=== PATIENT | female | born 1955 | race Caucasian/White ===

== ENCOUNTER → 2017-04-02 | Outpatient (CLI) | payer OTHER ==
[~2017-04-02] MED LIST: CALC1TAB87 PO; FERR325T18 PO; LEVO100T5 PO
[2017-04-02 14:42] LABS: BASOPHIL # 0.1 TH/MM3 (0-0.2); EOSINOPHIL # 0.1 TH/MM3 (0-0.4); EOSINOPHIL % 2.8 % (0.0-4.0); HEMATOCRIT 39.3 % (35.0-46.0); HEMOGLOBIN 12.8 GM/DL (11.6-15.3); LYMPH % 32.2 % (9.0-44.0); LYMPHOCYTE # 1.7 TH/MM3 (1.0-4.8); MEAN CORPUSCULAR HGB CONC 32.6 % (32.0-36.0); MEAN PLATELET VOLUME 6.9 FL (7.0-11.0); MONO % 6.5 % (0.0-8.0); MONOCYTE # 0.3 TH/MM3 (0-0.9); NEUT % 57.5 % (16.0-70.0); PLATELET COUNT 332 TH/MM3 (150-450); RED BLOOD COUNT 4.74 MIL/MM3 (4.00-5.30); RED CELL DISTRIBUTION WIDTH 16.1 % (11.6-17.2); WHITE BLOOD COUNT 5.2 TH/MM3 (4.0-11.0)
[2017-04-02 15:03] LABS: ALBUMIN 3.8 GM/DL (3.4-5.0); ALT (GPT) 34 U/L (10-53); AST (GOT) 20 U/L (15-37); BICARBONATE 29.9 MEQ/L (21.0-32.0); BLOOD UREA NITROGEN 11 MG/DL (7-18); CALCIUM 9.2 MG/DL (8.5-10.1); CHLORIDE 106 MEQ/L (98-107); CREATININE 0.83 MG/DL (0.50-1.00); GLOMERULAR FILTRATION RATE 70 ML/MIN (>89); GLUCOSE,FASTING 86 MG/DL (74-99); SODIUM (NA) 139 MEQ/L (136-145)
[2017-04-02 15:05] LABS: ALKALINE PHOSPHATASE 107 U/L (45-117); TOTAL BILIRUBIN ADULT 0.2 MG/DL (0.2-1.0); TOTAL PROTEIN 7.7 GM/DL (6.4-8.2)
[2017-04-02 15:21] LABS: PROTHROMBIN TIME - PATIENT 10.4 SEC (9.8-11.6)
--- NOTE | 2017-04-02 15:37 | RADRPT ---
EXAM DATE/TIME: 04/02/2017 15:07 [place] COMPARISON: No previous studies available for comparison. INDICATIONS : Evaluate for pneumonia, pneumothorax, or communicable disease. Pre-op dilation and curettage. MEDICAL HISTORY : None. SURGICAL HISTORY : None. ENCOUNTER: Initial ACUITY: 1 day PAIN SCORE: 0/10 LOCATION: Bilateral chest FINDINGS: PA and lateral views of the chest demonstrate the lungs to be symmetrically aerated without evidence of mass, infiltrate or effusion. The cardiomediastinal contours are unremarkable. Osseous structure s are intact. CONCLUSION: 1. No acute cardiopulmonary findings. Cb Ness MD on April 02, 2017 at 15:34 Board Certified Radiologist. This report was verified electronically.
--- NOTE | 2017-04-04 23:53 | EKG ---
Date Performed: 04/02/2017 Time Performed: 14:34:22 PTAGE: 62 years EKG: Sinus rhythm Normal ECG PREVIOUS TRACING : 01/31/2010 09.56 DOCTOR: Wilbur Man Interpretating Date/Time 04/04/2017 23:51:16
== END ==
LOC: CPRE 14:15
PROVIDERS: ATTEND Obstetrics & Gynecology Gynecologic Oncology
DX: Z01.812 Encounter for preprocedural laboratory examination (principal); Z01.811 Encounter for preprocedural respiratory examination; Z01.810 Encounter for preprocedural cardiovascular examination; N95.0 Postmenopausal bleeding
CPT/HCPCS: 36415; 71046; 80053; 85025; 85610; 85730; 93005

== ENCOUNTER → 2017-04-08 | Day surgery (SDC) | payer OTHER ==
[~2017-04-08] VITALS: Ht 157.5 cm; Wt 81.3 kg
[~2017-04-08] MED LIST changes: +CHLORHEXIDINE GLUCONATE 2 % 1 PACK (2 CLOTHS) TOPICAL PRN; +DEXAMETHASONE SOD PHOS 4 MG/ML VIAL IV ONE; +DO NOT ADM ANY ANTICOAGULANT DRUGS PRN; +KETOROLAC TROMETHAMINE 30 MG/ML (IVP) VIAL IV PUSH ONE; +KETOROLAC TROMETHAMINE 30 MG/ML (IVP) VIAL IV PUSH PRN; +LACTATED RINGER'S 1000 ML IV PRN; +LIDOCAINE HCL 1% PF 5 ML SYRINGE OTHER ONE; +METOPROLOL TARTRATE 25 MG TAB PO PRN; +MIDAZOLAM HCL 2 MG/2 ML VIAL ONE; +ONDANSETRON HCL 4 MG/2 ML VIAL IV ONE; +POVIDONE IODINE 5% (ANTISEPSIS KIT) 4 APPLICATIONS EACH NARE PRN; +PROPOFOL 200 MG/20 ML AMP IV ONE; +SODIUM CHLORID 0.9% 500 ML IV PRN
[2017-04-08 16:00] VITALS: BP 157/85; PULSE 71; RESP 20; TEMP 98.3; O2SAT 96
--- NOTE | 2017-04-08 17:20 | MP ---
cc: RAFAL TAI KELLY L. MD TAWWAB, SHAKEELA MD DATE OF SURGERY 04/08/17 PREOPERATIVE DIAGNOSIS 1. Postmenopausal bleeding. 2. Recent nondiagnostic hysteroscopy POSTOPERATIVE DIAGNOSIS 1. Postmenopausal bleeding. 2. Recent nondiagnostic hysteroscopy 3. Polypoid tissue within the endometrium, submucosal nodules suggestive of leiomyomas. 4. 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 PROCEDURE Examination under anesthesia, fractional dilation and curettage, biopsy of the cervix at 12 o'clock SURGEON Aron Padilla MD [employer] [place] nurse first aid ANESTHESIA Laryngeal mask anesthesia ESTIMATED BLOOD LOSS 30 mL HISTORY A 62-year-old female postmenopausal bleeding, intermittent in nature underwent a recent hysteroscopy D&C that revealed benign endocervical tissue, but there was not enough endometrial tissue to provide diagnosis. She was seen in our office for second opinion consultation where we discussed options and agreed on exam under anesthesia with attempts of dilation and curettage, possible additional biopsies. She is seen again in the preop holding area where she is accompanied by her son (Cb) where the findings are again reviewed, the recommendations are made. Questions were answered. The plan for the procedure were reviewed. She expressed good understanding and agreed to move forward. FINDINGS On exam under anesthesia, there is no appreciably enlarged inguinal lymph nodes. External genitalia without mass or lesion. The vaginal mucosa is visible and palpably normal. The surface of the cervix grossly appears normal, but there is a cleft at the 12 o'clock position that is vertical where the cervix indents from the ectocervix extending to the transformation zone (possible prior obstetrics injury?) with a little bit of prominence to the tissue on each side of the cleft but without overt neoplastic change. The endometrial cavity sounds to 10 cm. The endocervix curettings reveal a scant amount of tissue. The endometrial curettings revealed some fragments of polypoid tissue, moderate amount there also and the curetting was continued until all surfaces felt gritty. There are nodular in the posterior mid uterus and in the left the anterior uterus near the fundus that had nodules within the wall of the uterus and curetting over them had the sensation of probable leiomyomas. PROCEDURE IN DETAIL She was taken to the operating room placed in dorsal lithotomy position after laryngeal mask anesthesia was administered. Time-out was undertaken. She was identified by sight recognition and hospital ID bracelet and the proposed procedure was reviewed and confirmed. She was placed in lithotomy position positioned carefully, padded appropriately. Exam under anesthesia was performed with findings as described above. She was prepped, draped sterile fashion. In-and-out catheterization of the bladder was performed. The cervix was inspected and grasped at the 12 o'clock position to secure the area where there was a cleft noted to ensure there was no false passage created by this area. The uterine cavity was sounded after first probing with a lacrimal probe and then a narrow dilator breaking up small amount of scar tissue in endocervical canal and then the cavity sounded to 10 cm. Endocervical curettings were performed circumferentially, multiple passes combined as endocervical curetting. The cervix was then further dilated and a medium-sized curette was used with multiple passes circumferentially with findings as described above. Each pass and curetting were combined into a single specimen labeled endocervical curetting. A biopsy was taken right at the 12 o'clock position adjacent to the cleft and was labeled as cervix biopsy 12 o'clock. Cervix biopsy site was rendered hemostatic with silver nitrate. There was good hemostasis at the conclusion of the case. Preliminary and final counts were correct. Exam confirmed there were no remaining foreign objects in the vagina. She was returned to dorsal supine position and was pending reversal of anesthesia when I left the operating room to precede her to the Post Anesthesia Care Unit. MD CAROLINE Rivers/ /2:02 PM /4:52 PM
== END | disposition home or self-care (01) ==
LOC: HSDC 10:10
PROVIDERS: ATTEND Obstetrics & Gynecology Gynecologic Oncology
DX: N95.0 Postmenopausal bleeding (principal); N84.0 Polyp of corpus uteri
CPT/HCPCS: 00940; 58120; 86850; 86900; 86901; 88305; J1100; J1885; J2250; J2405; J3010; J7120